=== PATIENT | female | born 1980 | race Caucasian/White ===

== ENCOUNTER 2018-04-27 08:01 | Inpatient (IN) | payer MEDICAID ==
[2018-04-27] MEDS ORDERED: BUTORPHANOL 2 MG INJ IV (10:30)
[2018-04-27] MEDS ORDERED: CARBOPROST 250 MCG INJ IM ×2 (10:30→20:30)
[2018-04-27] MEDS ORDERED: DEXTROSE 5%-LR 1,000 ML IV (10:30)
[2018-04-27] MEDS ORDERED: AMPICILLIN 2 GM/NS (PMX) 100 ML IV (10:30)
[2018-04-27] MEDS ORDERED: BUTORPHANOL 1 MG INJ IV (10:30)
[2018-04-27] MEDS ORDERED: MISOPROSTOL 200 MCG TAB PR ×2 (10:30→20:30)
[2018-04-27] MEDS ORDERED: IBUPROFEN 600 MG TAB PO (10:30)
[2018-04-27] MEDS ORDERED: OXYTOCIN 30 UNITS/LR 500 ML IV ×3 (10:30→20:30)
[2018-04-27] MEDS ORDERED: LIDOCAINE 1% (MPF) 30 ML INJ INJ (10:30)
[2018-04-27] MEDS ORDERED: METHYLERGONOVINE 0.2 MG INJ IM ×2 (10:30→20:30)
[2018-04-27 10:47] LABS: ADD MAN DIFF? NO
[2018-04-27 10:50] LABS: BASOPHILS % 0.3 % (0.0-2.0); EOSINOPHILS % 0.6 % (0.0-7.0); HEMATOCRIT 38.8 % (37.0-47.0); HEMOGLOBIN 13.3 g/dl (12.0-16.0); LYMPHOCYTES % 27.3 % (15.0-51.0); MEAN CORPUSCULAR HEMOGLOBIN 30.2 pg (29.0-33.0); MEAN CORPUSCULAR HGB CONC 34.3 g/dl (32.0-37.0); MEAN CORPUSCULAR VOLUME 88.2 fl (82.0-101.0); MEAN PLATELET VOLUME 11.8 fl (7.4-10.4); MONOCYTE # 0.4 10^3/ul (0.3-0.9); MONOCYTES % 5.6 % (0.0-11.0); NEUTROPHIL # 4.7 10^3/ul (1.6-7.5); NEUTROPHILS % 65.8 % (39.0-77.0); PLATELET COUNT 181 10^3/UL (140-415); RED CELL DISTRIBUTION WIDTH 13.6 % (11.5-14.5)
[2018-04-27 10:50] LABS: WHITE BLOOD COUNT 7.2 10^3/ul (4.8-10.8)
[2018-04-27 10:56] LABS: INR 0.88; PT RATIO 0.9
[2018-04-27 10:57] LABS: ALANINE AMINOTRANSFERASE 20 IU/L (13-69); ALBUMIN 3.6 g/dl (3.3-4.9); ALKALINE PHOSPHATASE 135 IU/L (42-121); ANION GAP 11 (8-16); ASPARTATE AMINO TRANSFERASE 24 IU/L (15-46); BILIRUBIN,INDIRECT 0.7 mg/dl (0-1.1); BILIRUBIN,TOTAL 0.7 mg/dl (0.2-1.3); BLOOD UREA NITROGEN 8 mg/dl (7-20); CALCIUM 8.5 mg/dl (8.4-10.2); CARBON DIOXIDE 20 mmol/L (21-31); CHLORIDE 109 mmol/L (97-110); CREATININE 0.47 mg/dl (0.44-1.00); GLUCOSE 99 mg/dl (70-220); PARTIAL THROMBOPLASTIN TIME 21.3 Sec (25.0-35.0); POTASSIUM 3.9 mmol/L (3.5-5.1); SODIUM 136 mmol/L (135-144); TOTAL PROTEIN 6.6 g/dl (6.1-8.1); URIC ACID 5.3 mg/dl (3.1-7.9)
[2018-04-27 13:26] LABS: HEPATITIS B SURFACE ANTIGEN NEGATIVE (NEGATIVE)
[2018-04-27] MEDS ORDERED: AMPICILLIN 1 GM/NS (PMX) 50 ML IV (14:30)
[2018-04-27] MEDS: LACTATED RINGER'S 1,000 ML IV* ×3 (14:54→20:14)
[2018-04-27 15:04] LABS: RAPID PLASMA REAGIN NONREACTIVE (NR)
[2018-04-27] MEDS: OXYTOCIN 30 UNITS/LR 500 ML IV ×3 (16:15→19:18)
[2018-04-27] MEDS ORDERED: GLUCOSE GEL 15 GRAM TUBE PO ×2 (20:30)
[2018-04-27] MEDS ORDERED: GLUCAGON 1 MG INJ IM (20:30)
[2018-04-27] MEDS ORDERED: HYDROCODONE/APAP (5/325) TAB PO (20:30)
[2018-04-27] MEDS ORDERED: DIBUCAINE 1% 30 GM OINT PR (20:30)
[2018-04-27] MEDS ORDERED: ZOLPIDEM 5 MG TAB PO (20:30)
[2018-04-27] MEDS ORDERED: DEXTROSE 50% 50 ML SYRINGE IV ×2 (20:30)
[2018-04-27] MEDS ORDERED: GLUCOSE GEL 15 GRAM TUBE BUCCAL (20:30)
[2018-04-27] MEDS: MAGNESIUM HYDROXIDE 30ML CUP PO (21:20)
[2018-04-27] MEDS: WITCH HAZEL/GLYCERIN PAD PR (21:20)
[2018-04-27] MEDS: SENNA/DOCUSATE NA (8.6MG/50MG) TAB PO (21:20)
[2018-04-27] MEDS: LANOLIN 7 GM TUBE TOP (21:20)
[2018-04-27] MEDS: BENZOCAINE 20% 56 ML SPRAY TOP (21:20)
[2018-04-27] MEDS: HYDROCODONE/APAP (5/325) TAB PO (21:21)
[2018-04-27] MEDS: metFORMIN (XR) 500 MG TAB PO (21:55)
[2018-04-28] MEDS: IBUPROFEN 600 MG TAB PO ×5 (00:08→23:15)
[2018-04-28] MEDS: LACTATED RINGER'S 1,000 ML IV* ×3 (02:41→20:14)
[2018-04-28] MEDS: ACCU-CHEK XX ×4 (07:30→20:05)
[2018-04-28] MEDS: metFORMIN (XR) 500 MG TAB PO ×2 (09:05→21:19)
[2018-04-28] MEDS: MAGNESIUM HYDROXIDE 30ML CUP PO ×2 (09:05→21:10)
[2018-04-28] MEDS: SENNA/DOCUSATE NA (8.6MG/50MG) TAB PO ×2 (09:05→21:10)
[2018-04-28 09:19] LABS: ADD MAN DIFF? NO
[2018-04-28 09:21] LABS: WHITE BLOOD COUNT 9.1 10^3/ul (4.8-10.8)
[2018-04-28 09:21] LABS: BASOPHILS % 0.2 % (0.0-2.0); EOSINOPHILS % 0.4 % (0.0-7.0); HEMATOCRIT 35.2 % (37.0-47.0); HEMOGLOBIN 11.8 g/dl (12.0-16.0); LYMPHOCYTES # 1.8 10^3/ul (0.8-2.9); LYMPHOCYTES % 20.1 % (15.0-51.0); MEAN CORPUSCULAR HEMOGLOBIN 29.5 pg (29.0-33.0); MEAN CORPUSCULAR HGB CONC 33.5 g/dl (32.0-37.0); MEAN PLATELET VOLUME 11.7 fl (7.4-10.4); MONOCYTE # 0.5 10^3/ul (0.3-0.9); MONOCYTES % 5.6 % (0.0-11.0); NEUTROPHIL # 6.7 10^3/ul (1.6-7.5); NEUTROPHILS % 73.5 % (39.0-77.0); PLATELET COUNT 177 10^3/UL (140-415); RED CELL DISTRIBUTION WIDTH 14.3 % (11.5-14.5)
[2018-04-28 13:46] LABS: ADD UMIC YES; UR ASCORBIC ACID NEGATIVE (NEGATIVE); UR BILIRUBIN (Dip) NEGATIVE (NEGATIVE); UR BLOOD (Dip) 3+ mg/dL (NEGATIVE); UR CLARITY SLIGHTLY CLOUDY (CLEAR); UR COLOR RED (YELLOW); UR GLUCOSE (Dip) 3+ mg/dL (NEGATIVE); UR KETONES (Dip) NEGATIVE (NEGATIVE); UR LEUKOCYTE ESTERASE (Dip) 2+ Leu/ul (NEGATIVE); UR NITRITE (Dip) NEGATIVE (NEGATIVE); UR RBC > 182 /HPF (0-5); UR SPECIFIC GRAVITY (Dip) 1.006 (1.003-1.030); UR SQUAMOUS EPITHELIAL CELL FEW /HPF (FEW); UR TOTAL PROTEIN (Dip) 1+ mg/dl (NEGATIVE); UR UROBILINOGEN (Dip) NEGATIVE (NEGATIVE); UR WBC 156 /HPF (0-5)
[2018-04-29] MEDS: IBUPROFEN 600 MG TAB PO ×2 (05:40→11:41)
[2018-04-29] MEDS: ACCU-CHEK XX ×2 (07:30→10:05)
[2018-04-29] MEDS: MEASLES,MUMPS,RUBELLA VACCINE INJ SC* (08:20)
[2018-04-29] MEDS: VARICELLA VACCINE LIVE/PF 1,350 UNIT/0.5 ML ML SC* (08:20)
[2018-04-29] MEDS: MAGNESIUM HYDROXIDE 30ML CUP PO (08:39)
[2018-04-29] MEDS: SENNA/DOCUSATE NA (8.6MG/50MG) TAB PO (08:39)
[2018-04-29] MEDS: metFORMIN (XR) 500 MG TAB PO (08:39)
[2018-04-29] MEDS: DIPHTH/TET/ACEL PERTUSS (ADULT) 0.5 ML VIAL IM* (10:13)
== END 2018-04-29 14:15 | disposition home or self-care (01) | DRG 775 ==
LOC: OBT 08:01 → L-D 08:01 → OBT 09:15 → L-D 09:15 → PP1 20:22
PROC: 10E0XZZ Delivery of Products of Conception, External Approach (ICD-10-PCS; principal; 2018-04-27)
PROC: 0HQ9XZZ Repair Perineum Skin, External Approach (ICD-10-PCS; 2018-04-27)
PROC: 3E033VJ Introduction of Other Hormone into Peripheral Vein, Percutaneous Approach (ICD-10-PCS; 2018-04-27)
DX: O24.429 Gestational diabetes mellitus in childbirth, unspecified control (principal); O70.0 First degree perineal laceration during delivery; O69.81X0 Labor and delivery complicated by cord around neck, without compression, not applicable or unspecified; Z3A.39 39 weeks gestation of pregnancy; Z37.0 Single live birth
CPT/HCPCS: 80053; 81001; 82962; 84560; 85025; 85384; 85610; 85730; 86592; 86850; 86900; 86901; 87340; 90715